=== PATIENT | female | born 1955 | race Caucasian/White ===

== ENCOUNTER 2017-07-04 12:59 | Day surgery (SDC) | payer BC ==
[2017-07-04] VITALS (17 sets, daily range): BP systolic 114–122; BP diastolic 58–66; PULSE 75–90; RESP 16–18; Ht 167.6 cm; Wt 62.8 kg
[~2017-07-04] VITALS: Ht 167.6 cm; Wt 62.8 kg
[~2017-07-04 12:59] MED LIST: CEFAZOLIN 1 GM INJ ONE; LACTATED RINGER'S 1,000 ML IV* SCH
[2017-07-04] MEDS ORDERED: PROG200C6 PO (14:12)
[2017-07-04] MEDS ORDERED: OXYC-209 PO (14:12)
[2017-07-04] MEDS ORDERED: [UNRECOGNIZED DRUG - CODE] PO (14:12)
[2017-07-04] MEDS ORDERED: TESTOSTERONE CREAM (14:12)
[2017-07-04] MEDS ORDERED: HYDR-902 PO (14:12)
[2017-07-04] MEDS ORDERED: METH750T93 PO (14:12)
[2017-07-04] MEDS ORDERED: POLYMYXIN/BACITRACIN 1L IRRIG ONE (14:18)
--- NOTE | 2017-07-04 14:30 | RADRPT ---
PROCEDURE: XR Chest. CLINICAL INDICATION: Preop TECHNIQUE: Single portable view of the chest was obtained COMPARISON: No priors for comparison FINDINGS: The trachea is midline. The cardiac silhouette and pulmonary vascularity are within normal limits. T he lungs are clear. The costophrenic angles are sharp. IMPRESSION: 1. No evidence of acute cardiopulmonary disease. RPTAT: [facility] Physician Liborio Date Time Electronically viewed and signed by Physician Liborio on 07/04/2017 14:29 FEDE/
[2017-07-04] MEDS ORDERED: PROPOFOL 20 ML ONE (14:41)
[2017-07-04] MEDS ORDERED: MEPERIDINE 100 MG INJ ONE (14:41)
[2017-07-04] MEDS ORDERED: LIDOCAINE 2% (SDV) 5 ML INJ ONE (14:41)
[2017-07-04] MEDS ORDERED: LABETALOL HCL 20MG INJ IV PRN (15:00)
[2017-07-04] MEDS ORDERED: hydrALAzine 20 MG INJ IV PRN (15:00)
[2017-07-04] MEDS ORDERED: HYDROmorphONE (0.2 MG/ML) 10ML SYG IV PRN ×3 (15:00)
[2017-07-04] MEDS ORDERED: MIDAZOLAM 1 MG/ML 2 ML INJ IV PRN (15:00)
[2017-07-04] MEDS ORDERED: OXYCODONE/ACETAMINOPHEN (5/325) TAB PO PRN ×2 (15:00)
[2017-07-04] MEDS ORDERED: MEPERIDINE 25 MG INJ IV PRN (15:00)
[2017-07-04] MEDS ORDERED: FENTAnyl 50 MCG/ML VIAL IV PRN ×3 (15:00)
[2017-07-04] MEDS ORDERED: METOCLOPRAMIDE 10 MG INJ IV PRN (15:00)
[2017-07-04] MEDS ORDERED: ONDANSETRON 4 MG INJ IV PRN (15:00)
[2017-07-04] MEDS ORDERED: EPHEDrine SULFATE 50 MG/5 ML SYG IV PRN (15:00)
[2017-07-04] MEDS ORDERED: DIPHENHYDRAMINE 50 MG INJ IV PRN (15:00)
[2017-07-04] MEDS ORDERED: POLYMYXIN/BACITRACIN 1L IRRIG IRR ONE (15:05)
[2017-07-04] MEDS ORDERED: METOCLOPRAMIDE 10 MG INJ ONE (15:12)
[2017-07-04] MEDS ORDERED: ONDANSETRON 4 MG INJ ONE (15:12)
--- NOTE | 2017-07-04 16:08 | SIPON ---
Date/Time of Note Date/Time of Note DATE: 07/04/17 TIME: 16:06 Operative Report Preoperative Diagnosis right tarsal tunnel syndrome Postoperative Diagnosis rigth tarsal tunnel syndrome Operation/Procedure Performed rigth tarsal tunnel release Surgeon see signature line medical staff assistant none Anesthesia: general Estimated blood loss: minimal Transfusion Required none Specimen none Grafts/Implants none Complications none GORDON BURT MD Jul 04, 2017 16:08
--- NOTE | 2017-07-04 16:17 | SIPON ---
Date/Time of Note Date/Time of Note 60 DATE: 07/04/17 Operative Report Preoperative Diagnosis right tarsal tunnel syndrome Postoperative Diagnosis right tarsal tunnel syndrome Operation/Procedure Performed right tarsal tunnel release Surgeon see signature line personal care assistant none Anesthesia: general Estimated blood loss: minimal Transfusion Required none Specimen none Grafts/Implants none Complications none GORDON BURT MD Jul 04, 2017 16:16
[2017-07-04] MEDS ORDERED: HYDROCODONE/APAP (10/325) TAB PO PRN (16:30)
--- NOTE | 2017-07-04 20:40 | OPR ---
DATE OF OPERATION: 07/04/2017 PREOPERATIVE DIAGNOSIS: Right tarsal tunnel syndrome, painful and unresponsive to conservative ther apy. POSTOPERATIVE DIAGNOSIS: Right tarsal tunnel syndrome, painful and unresponsive to conservative the rapy. PROCEDURE PERFORMED: Right tarsal tunnel release COOKER TENDER: None. DESCRIPTION OF PROCEDURE: The patient was taken to the operating room and placed in the supine posi tion. Patient was given 1 gram Ancef antibiotic prophylaxis. The patient was given general anesthesia and the patient's right lower extremity was prepped and fawad ped in the usual sterile fashion. The patient's right leg was exsanguinated using a sterile Esmarch bandage and a thigh tourniquet was inflated to 250 mmHg. Utilizing a straight longitudinal incision from the level of the medial malleolus to the sole of the foot. Following the path of the posterior tibial nerve. The skin was divided and careful dissecti on was carried down to the level of the retinaculum. The retinaculum over the right tarsal tunnel was divided sharply and the posterior tibial nerve was identified and seemed to be entrapped. The nerve was freed up of its soft tissue investments and was traced down to the abductor hallucis m uscle. The superficial fascia of the abductor hallucis was divided. The muscle was retracted plantarly and the deep layer of the fascia was also divided, completely freeing up the posterior tibial nerve in the region of the tarsal tunnel. Following this, was carefully irrigated. The nerve was carefully inspected for any sign of compress ion. No further compression was noted after tarsal tunnel release was performed. There is no mass filling lesion. After this, the wound was irrigated once again. Tourniquet was released. Tourniqu et time was 28 minutes. The wound was closed after careful hemostasis with electrocautery with a 5- 0 nylon suture using interrupted vertical mattress sutures. Xeroform dry sterile dressing was place d. The patient was reversed from general anesthesia [facility] on her own power and sensory condition. No intraoperative complications. Dictated By: GORDON WALTERS/KATHY Conf#: [id number] DID#: [id number] CC: GORDON BURT MD;*EndCC*
== END 2017-07-04 17:55 | disposition home or self-care (01) ==
LOC: SDS 12:59
PROVIDERS: ATTEND Orthopaedic Surgery
DX: G57.51 Tarsal tunnel syndrome, right lower limb (principal)
CPT/HCPCS: 28035; 71010; J0690; J2175; J2405; J2765